=== PATIENT | female | born 1995 | race Hispanic/Latino ===

== ENCOUNTER 2018-01-12 20:56 | Emergency (ER) | payer MEDICAID ==
--- NOTE | 2018-01-12 22:27 | ULT ---
ULTRASOUND EARLY OBSTETRICAL: DATE: 01/12/18 TIME: 10:02 p.m. HISTORY: First trimester vaginal bleeding in 22-year-old female. FINDINGS: Intrauterine gestational sac containing pole. Sylvia-rump length: 2.6 cm: 9w 3d No heart activity detected. No subchorionic hemorrhage. No free fluid in the cul-de-sac. Normal appearance of right ovary. Left ovary not visualized. IMPRESSION: First trimester intrauterine demise at 9 weeks, 2 days. POS: JIN
[2018-01-12] MEDS ORDERED: Ketorolac Tromethamine 30 MG/ML VIAL ONE (23:17)
== END 2018-01-12 23:31 | disposition home or self-care (01) ==
LOC: ERS 20:56
DX: O02.1 Missed abortion (principal)
CPT/HCPCS: 76856; 87491; 87591; 96374; J1885